=== PATIENT | male | born 1960 | race Two or more races ===

== ENCOUNTER 2020-03-05 10:37 | Emergency (ER) | payer OTHER ==
[~2020-03-05] VITALS: Ht 172.7 cm; Wt 97.5 kg
--- NOTE | 2020-03-05 10:45 | NUR ---
[id number] c/o mouth/jaw pain s/p trip and fall. +oral trauma. denies ko. Patient a/ox4, breathing even and unlabored, no sob noted, needs attended. Kept comfortable. Patient able to ambulate with steady gait.
[2020-03-05] MEDS ORDERED: MORPHINE SULFATE INJ 2 MG/ML DISP.SYRIN IV ONE (11:00)
[2020-03-05] MEDS ORDERED: ONDANSETRON HCL/PF 4 MG/2 ML VIAL IVP ONE (11:00)
--- NOTE | 2020-03-05 11:00 | NUR ---
IV line established, blood drawn and sent to lab. Urine sample given by patient, also sent to lab.
[2020-03-05] MEDS ORDERED: ONDANSETRON HCL/PF 4 MG/2 ML VIAL ONE (11:16)
[2020-03-05] MEDS ORDERED: MORPHINE SULFATE INJ 4 MG/ML DISP.SYRIN ONE (11:17)
[2020-03-05 11:18] LABS: BASOPHILS # (AUTO) 0.1 /CMM (0.0-0.2); BASOPHILS % (AUTO) 2.6 % (0.0-2.0); EOSINOPHILS % (AUTO) 9.8 % (0.0-6.0); HEMATOCRIT 35 % (39-51); HEMOGLOBIN 12.1 g/dL (13.5-17.5); LYMPHOCYTES # (AUTO) 0.4 /CMM (0.8-4.8); LYMPHOCYTES % (AUTO) 8.7 % (20.0-44.0); MEAN CORPUSCULAR HGB CONC 35 g/dl (31.0-36.0); MEAN CORPUSCULAR VOLUME 103 fL (80-96); MONOCYTES # (AUTO) 0.4 /CMM (0.1-1.30); MONOCYTES % (AUTO) 8.9 % (2.0-12.0); NEUTROPHILS # (AUTO) 3.2 /CMM (1.8-8.9); PLATELET COUNT (AUTO) 57 /CMM (150-450); RED BLOOD CELL COUNT(AUTO) 3.36 MIL/uL (4.5-6.0); WHITE BLOOD COUNT (AUTO) 4.6 K/uL (4.3-11.0)
--- NOTE | 2020-03-05 11:22 | NUR ---
PATIENT TRANSFERRED TO RADIOLOGY FOR CT.
[2020-03-05 11:23] LABS: CALCIUM, SERUM 9.5 mg/dL (8.5-10.1); CARBON DIOXIDE 25 mmol/L (21-32); CHLORIDE 101 mmol/L (98-107); CREATININE 1.5 mg/dL (0.6-1.3); GLUCOSE 85 mg/dL (74-106); POTASSIUM 3.9 mmol/L (3.5-5.1); SODIUM SERUM 140 mmol/L (136-145); UREA NITROGEN, BLOOD 19 mg/dL (7-18)
[2020-03-05 11:28] LABS: ALANINE AMINOTRANSFERASE 18 U/L (12-78); ALBUMIN 4.1 g/dL (3.4-5.0); ALCOHOL, BLOOD < 3 mg/dL (0-0); ALKALINE PHOSPHATASE 77 U/L (46-116); ASPARTATE AMINOTRANSFERASE 43 U/L (15-37); BILIRUBIN,DIRECT 3.7 mg/dL (0.0-0.2); BILIRUBIN,TOTAL 5.7 mg/dL (0.2-1.0); TOTAL PROTEIN, SERUM 7.2 g/dL (6.4-8.2)
[2020-03-05 11:51] LABS: SERUM AMMONIA 22 umol/L (11-32)
[2020-03-05 12:37] LABS: EOSINOPHILS % (MANUAL) 15 % (0-4); LYMPHOCYTES % (MANUAL) 7 % (16-48); MONOCYTES % (MANUAL) 4 % (0-11.0); NEUTROPHILS % (MANUAL) 74 (42-76)
[2020-03-05 12:45] VITALS: BP 118/86
== END 2020-03-05 12:45 | disposition home or self-care (01) ==
LOC: ER 10:39
DX: S00.83XA Contusion of other part of head, initial encounter (principal); S00.511A Abrasion of lip, initial encounter; W01.0XXA Fall on same level from slipping, tripping and stumbling without subsequent striking against object, initial encounter; Y93.89 Activity, other specified; Y92.89 Other specified places as the place of occurrence of the external cause; Y99.8 Other external cause status
CPT/HCPCS: 36415; 70450; 70486; 72125; 80048; 80076; 80320; 82140; 85007; 85025; 85730; 96374; 96375; 99285; J2270; J2405; G0480